=== PATIENT | female | born 1975 | race Caucasian/White ===

== ENCOUNTER 2023-06-08 22:27 | Emergency (ER) | payer OTHER ==
[~2023-06-08] VITALS: Ht 162.6 cm; Wt 59.0 kg
[~2023-06-08 22:27] MED LIST: BIRTH CONTROL PILLS; FLUT.05NI
[2023-06-08 22:46] VITALS: BP 135/70
== END 2023-06-09 01:05 | disposition home or self-care (01) ==
LOC: ER 22:27
DX: F41.9 Anxiety disorder, unspecified (principal); F15.10 Other stimulant abuse, uncomplicated; Z79.899 Other long term (current) drug therapy
CPT/HCPCS: 99283; A9270